=== PATIENT | female | born 1955 | race Caucasian/White ===

== ENCOUNTER 2018-11-24 03:48 | Inpatient (IN) ==
[2018-11-24] MEDS ORDERED: ZOFRAN ONE ×2 (04:03)
[2018-11-24] MEDS ORDERED: MORPHINE ONE ×2 (04:03)
[2018-11-24] MEDS ORDERED: NS 1,000 ML ONE ×3 (04:03→06:25)
[2018-11-24] MEDS ORDERED: DILAUDID ONE ×4 (04:30→08:38)
[2018-11-24] MEDS ORDERED: LOPRESSOR ONE (06:43)
[2018-11-24] MEDS ORDERED: ATIVAN ONE (06:44)
[2018-11-24 07:23] LABS: AGAP 16; ALB/GLOB RATIO 1.6; ALBUMIN 3.9 g/dL (3.5-5.0); ALKALINE PHOSPHATASE 104 U/L (32-104); BUN 13 mg/dL (8-22); CALCIUM 7.3 mg/dL (8.8-10.2); CHLORIDE 95 mmol/L (98-107); COSMO 273; CREATININE 0.5 mg/dL (0.5-0.9); GLUCOSE 179 mg/dL (70-104); GOT 20 U/L (10-30); GPT 26 U/L (10-36); LIPASE 15 U/L (13-60); POTASSIUM 3.6 mmol/L (3.5-5.1); SODIUM 134 mmol/L (136-145); TCO2 23 mmol/L (25-35); TOTAL BILIRUBIN 0.86 mg/dL (0.20-1.00); TOTAL PROTEIN 6.4 g/dL (6.3-8.3)
[2018-11-24 08:12] LABS: BASO# 0.05 X1000 (0.0-0.2); BASO% 0.6 % (0.0-0.8); HEMATOCRIT 48.2 % (37.0-47.0); HEMOGLOBIN 15.8 g/dL (12.0-16.0); IMM GRAN# 0.09 X1000 (0.0-0.04); IMM GRAN% 1.2 % (0.0-0.5); LYMPH# 1.33 X1000 (1.2-3.4); LYMPH% 17.2 % (20.5-51.1); MCHC 32.8 g/dL (33-37); MCV 88.4 FL (81-99); MONO# 0.43 X1000 (0.11-0.59); MONO% 5.6 % (1.7-9.3); NEUT# 5.82 X1000 (1.4-6.5); NEUT% 75.4 % (42.2-75.2); PLT 323 X1000 (130-400); RBC 5.45 XMIL (4.2-5.4); WBC 7.72 X1000 (4.8-10.8)
[2018-11-24] MEDS ORDERED: DILAUDID IV ONE (08:30)
--- NOTE | 2018-11-24 09:12 | Diag Imaging Result Doc PS360 ---
EXAM: CT ABD/PELVIS W/IV CONT ONLY INDICATION: ABD PAIN AND DISTENSION TECHNIQUE: This exam was performed using automated exposure control, adjustment of mA or kV according to patient size, and/or use of iterative reconstruction technique. COMPARISON: None. FINDINGS: There are extensive emphysematous changes at the lung bases. There is minimal subsegmental atelectasis and/or scarring at the lung bases. There are numerous indeterminate low dense lesions seen throughout the hepatic parenchyma. Many are too small to characterize. It is possible that they represent multiple small complex cysts containing proteinaceous debris. There is mild intrahepatic and extrahepatic biliary dilatation. No radiopaque ductal stones can be identified. The gallbladder is distended and is grossly unremarkable, otherwise. The spleen, pancreas, and adrenal glands are unremarkable. There is small volume ascites tracking around the liver and spleen and layering in the pelvis. The right renal collecting system is mild to moderately dilated. This is of unknown acuity but is probably due to the dilated colon discussed below exhibiting mass effect on the distal ureter. The kidneys are unremarkable, otherwise. The urinary bladder is distended and is unremarkable, otherwise. There has been a prior hysterectomy. There is a large volume of stool seen throughout the colon and in the rectum suggesting severe constipation. The colon is distended with stool. There is feculent material in multiple loops of small bowel, which suggests slowed bowel transit. Loops of small bowel are mildly dilated that is likely related to the constipation. No focal bowel obstruction is identified. No free abdominal gas is identified. There is a small hiatal hernia and the distal esophagus is fluid-filled suggesting reflux. There are several vague lytic bone lesions in the spine. There are couple of lytic pelvic lesions, for instance, at the inferior pubic ramus on the right. These are suspicious for metastatic disease from an occult neoplasm or multiple myeloma. IMPRESSION: 1.Severe constipation. 2.Mild to moderate dilated right renal pelvis, likely due to mass effect from the dilated colon. 3.Multiple nonspecific low dense lesions throughout the liver. Although it is possible they represent protein filled cysts, they are certainly suspicious for neoplasm. 4.Small volume ascites. 5.Vague skeletal lytic lesions suspicious for metastatic disease or myeloma. 6.Pulmonary emphysema. Electronically signed by Dakota Abraham 11/24/2018 9:10 AM
--- NOTE | 2018-11-24 09:16 | EKG Report ---
Test Performed on : 11/24/2018 06:19:02 AM Test Reason : ED. NO EKG ORDER FOR MUSE Blood Pressure : / mmHG Vent. Rate : 153 BPM Atrial Rate : 153 BPM P-R Int : 120 ms QRS Dur : 072 ms QT Int : 322 ms P-R-T Axes : -29 061 063 degrees QTc Int : 514 ms Sinus tachycardia. Otherwise normal ECG No previous ECGs available Unconfirmed Result
[2018-11-24] MEDS ORDERED: SODIUM CHLORIDE 0.9% INJ ONE (09:32)
[2018-11-24] MEDS ORDERED: PROTONIX IV ONE (09:32)
[2018-11-24] MEDS ORDERED: DULCOLAX PR SCH (09:45)
[2018-11-24] MEDS ORDERED: NS 1,000 ML IV ONE (09:48)
[2018-11-24] MEDS ORDERED: NS 1,000 ML IV SCH (10:00)
[2018-11-24] MEDS ORDERED: LIDODERM TOP SCH (10:15)
[2018-11-24] MEDS ORDERED: ZOFRAN IV PRN (10:46)
[2018-11-24 10:52] LABS: HEMOGLOBIN 11.1 g/dL (12.0-16.0)
[2018-11-24] MEDS ORDERED: LACTULOSE PO SCH (11:00)
[2018-11-24] MEDS ORDERED: PROTONIX 80 MG in NS 80 ML IV ONE (11:00)
[2018-11-24 11:05] LABS: INR 1.59; PROTIME 20.2 Seconds (11.0-16.0)
--- NOTE | 2018-11-24 11:20 | HISTORY AND PHYSICAL ---
ADDENDUM: I have discussed the components of history, physical, labs, assessment and plan verbally. I am awaiting the official note. I went to the bedside and evaluated the patient. In brief, Ms. Pascal is a 63-year-old, lady with metastatic cancer of unclear primary who is on chemotherapy. Comes in with complaints off coffee-grounds emesis, severe nausea, vomiting, abdominal pain of about 8 hours' duration which started close to midnight today. On arrival, the patient's vitals were unremarkable. However, on my review, I was not able to obtain proper blood pressure. The patient was in excruciating abdominal pain and was tossing in the bed. She also appears confused and has acute encephalopathy. The vitals which were reported in the system suggest temperature of 99.1 degrees, pulse 54, respiratory rate 26, blood pressure 138/103. On my examination, she appeared to be tachycardic with a heart rate of 110 per minute. Her oral cavity was dry. There was some staining of the lips and oral mucosa, appeared coffee- grounds. Her air entry was bilaterally equal with shallow breaths, without wheeze, rhonchi, crackles. She was tachycardic. The examination was limited as she was not able to lie down still in the bed. On abdomen examination, she was distended. There was voluntary guarding. I could not appreciate too much rigidity. However, again, the examination was limited because of her constantly tossing in the bed. She had hypoactive bowel sounds. In fact, I could not appreciate any bowel sounds and she had tympany to percussion. On rectal examination, there were about four impacted stony stool balls that I was able to disimpact. She appeared pale. Labs suggestive of no leukocytosis, normal hemoglobin and platelet count, hyponatremia, hypochloremia, normal kidney function. IMAGING: The abdominal and pelvis CT was suggestive of severe constipation, mild to moderate dilated renal pelvis due to mass effect from dilated colon, multiple lesions throughout the liver and bone, suspicious of new malignancy, and pulmonary emphysema. ASSESSMENT AND PLAN: 1. Large intestine obstruction, likely because of rectal impaction, status post manual disimpaction. However, she still appears to have a lot of stool in the rectum which I could not reach out to. I will start her on a bisacodyl suppository. We will give her on as needed medication for nausea vomiting. I will consult gastroenterology for her coffee-grounds emesis. I have ordered Protonix bolus and IV BID dosing. NS bolus has also been ordered. I would also consult surgery as her colonic dilatation was almost pressing on the renal pelvis, causing hydronephrosis, to have them on board just in case her clinical situation deteriorates. On CT scan report, there was no free air. I will also start on intravenous Protonix. 2. Disposition. The patient will be transferred to the [facility] as I was not able to obtain blood pressure consistently. However, on manual reading, she did have a systolic blood pressure of 100 and her pulse was palpable later on. Plan of care was discussed with the patient's mother and father, who are her surrogate decision-makers. All of their questions have been answered satisfactorily. cc: Iftikhar Montez MD MTDD
--- NOTE | 2018-11-24 11:43 | HISTORY AND PHYSICAL ---
PRIMARY CARE PHYSICIAN: Verna Walker MD. CHIEF COMPLAINT: Abdominal pain. HISTORY OF PRESENT ILLNESS: Mrs. Schroeder is a 63-year-old female with a history of metastatic malignancy of unknown origin followed by Dr. Jeri Owen. She also has a history of chronic pain on narcotic therapy. She has been in her usual state of health until yesterday, she had acute onset of abdominal pain and distention followed by multiple episodes of nausea and vomiting, which progressed into the night and into this morning ultimately requiring her to come to the ER for evaluation. In the ER, she had a CT of the abdomen and pelvis done, which showed numerous indeterminate low dense lesions throughout the hepatic parenchyma, small volume ascites, right renal collecting system with moderate dilatation likely secondary to mass effect of remarkable constipation, and multiple vague skeletal lytic lesions suspicious for metastatic disease along with pulmonary emphysema. Her laboratory data is largely unremarkable, however, she is in exquisite amount of pain requiring multiple doses of narcotic therapy for relief. On physical exam, her abdomen is distended and there appears to be a hernia superior to the umbilicus. She is in quite a bit of distress and encephalopathic as well. Also, there are reports that she has been vomiting coffee-ground emesis, indeed she has dark red fluid around her lips and in her mouth and her oral mucosa is very dry. Given all of the above, she will need inpatient admission for further treatment and evaluation. PAST MEDICAL HISTORY: 1. Metastatic disease of unknown origin followed by Dr. Jeri Owen with active chemotherapy, last dose last Wednesday. 2. Apparent COPD. 3. Chronic pain on narcotic therapy. PAST SURGICAL HISTORY: Hysterectomy. SOCIAL HISTORY: She is . Her mother and father are at the bedside. She quit smoking multiple years ago. No current tobacco, alcohol, or drug use. FAMILY HISTORY: Noncontributory. REVIEW OF SYSTEMS: Difficult to obtain but a limited 10-point review of systems was obtained and found to be negative with the exception of the HPI. ALLERGIES: No known drug allergies. HOME MEDICATIONS: Yet to be compiled. She does take morphine extended release for back pain. List is currently updated by the nursing staff. PHYSICAL EXAMINATION: VITAL SIGNS: Blood pressure is 138/103, respiratory rate is 26, O2 saturation 96% on nasal cannula, temperature is 99.1. GENERAL: This is a chronically ill borderline cachetic-appearing 63-year-old female lying in the hospital bed in [id number] distress. NEUROLOGIC: She is able to state that she is in [place] but cannot give the correct year or the month. She does follow commands without any focal deficits. HEENT: Head is atraumatic and normocephalic. Her pupils are equal, round, and reactive to light. Oral mucosa is dry with traces of coffee-ground emesis in her mouth and around her lips. NECK: Trachea is midline. Neck is supple. There is no JVD. CHEST: Diminished at the bases but clear to auscultation. CARDIOVASCULAR: Regular rate and rhythm. S1 and S2 is noted. No murmurs. GASTROINTESTINAL: Distended but soft. There is a periumbilical hernia. Bowel sounds are hypoactive. EXTREMITIES: Pulses are diminished but palpable. DIAGNOSTIC DATA: Abdomen and pelvis CT: Please see HPI. WBC 7.73, hemoglobin 15.8, hematocrit 48.2, platelet count 323. Sodium 134, potassium 3.6, chloride 95, CO2 23, anion gap 16, BUN 13, creatinine 0.5, glucose 179, calcium 7.3, LFTs normal, albumin 3.9, lipase 15. ASSESSMENT AND PLAN: 1. Acute abdominal pain with distention: It would appear, at least at this time that the majority of her symptoms are secondary to severe fecal impaction, however given her known history of metastatic disease with liver involvement, stomach involvement, and possibly others, the possibility of acute intraabdominal process cannot be ruled out. We have consulted Surgery and will do Dulcolax suppositories. We have also started her on fluids and Protonix. We have also consulted GI for further assistance. 2. Gastrointestinal bleed. We have ordered a Protonix bolus and GI consultation, she does have apparent malignancy in her stomach although that is report given by the family, there is no documentation of such in her chart. Will trend her hemoglobin and hematocrit every 6 hours. 3. Metastatic malignancy: Unclear as to the primary source of malignancy. Will consult Dr. Owen and continue pain control. 4. Further recommendations to follow. Dictated by JESUS Carolina for Iftikhar Montez MD cc: JESUS Carolina MD I agree with most components of history, physical, assessment and plan. A separate addendum has been dictated. MTDD
--- NOTE | 2018-11-24 14:04 | GASTROENTEROLOGY CONSULTATION ---
DATE: 11/24/2018 PRIMARY CARE PHYSICIAN: Verna Walker. REASON FOR CONSULTATION: Abdominal pain. HISTORY OF PRESENT ILLNESS: Ms. Pascal 63 -year-old female who has a history of metastatic malignancy of unknown origin, being followed by Dr. Jeri Owen. She has been on chronic narcotics for chronic pain. The patient admitted on 11/24/2018 for worsening abdominal pain and distention. She had imaging done in the form of CT scan which showed evidence of: #1 severe constipation,#2 mild to moderate dilated right renal pelvis likely due to mass effect from the dilated colon, #3 multiple nonspecific low dense lesions throughout the liver. Although is possible they represent protein filled cyst, they are certainly suspicious for neoplasm. 4. small volume ascites; 5. Vague skeletal lytic lesions suspicious for metastatic disease or myeloma. 6. Pulmonary emphysema. 7. Feculent material in multiple loops of the small bowel because of constipation and large bowel obstruction. According to the patient's mother, father and brother, patient has been diagnosed with malignancy at [facility] a few months ago, and she has seen by Dr. Jeri Owen and getting active chemotherapy. The last chemotherapy was last Wednesday. According to the patient's mother she has been in more pain for the last few days. In the abdomen and that prompted them to bring her to the ER. She also has a history of some intermittent nausea and vomiting. There was also a question of coffee-grounds emesis. The history was obtained from the patient's family and the nursing report and the primary care team. PAST MEDICAL HISTORY: 1. Metastatic disease of unknown origin. Followed by Dr. Jeri Owen. 2. Chronic obstructive pulmonary disease. 3. Chronic narcotic use for chronic pain. PAST SURGICAL HISTORY: Hysterectomy. FAMILY HISTORY: Noncontributory. SOCIAL HISTORY: She is . Her mother father and brother are present at bedside. She quit smoking multiple years ago. No current alcohol, tobacco, or illicit drug abuse. REVIEW OF SYSTEMS: Could not be obtained as the patient I could not answer any of my questions. She is in pain and in mild distress. ALLERGIES: No known drug allergies. MEDICATIONS IN HOSPITAL: IV normal saline 1000 mL/hour, Protonix 80 mg IV once. Dulcolax 10 mg per rectum every 8 hours, lactulose 30 mL p.o. b.i.d., lidocaine 5% patch topical daily. Normal saline at 125 mL/hour maintenance, Zofran 4 mg IV every 4 hours as needed, Protonix 40 mg IV b.i.d., Dilaudid 2 mg IV once. PHYSICAL EXAMINATION: Temperature 99.1 degrees, pulse rate of 54, respiratory 26 blood pressure 130/103 saturating 92%. General: Thinly built, chronically ill appearing. Lying in bed, in mild to moderate distress. HEENT: Positive pallor, no icterus. Neck: Supple. Abdomen: Distended. There is a periumbilical hernia. No guarding or rebound. Bowel sounds are hypoactive. Extremities: No cyanosis, clubbing. Neuro: She is able to answer only a few of my questions. She was able to tell me that her last bowel movement last Wednesday about 10 days ago. LABS: 1. Hemoglobin and hematocrit 11.1 and 36, white count of 7.7, platelet count of 323,000 MCV 88.4, INR 1.09, PTT of 20.2, sodium 135 potassium 3.6, chloride 95, bicarb 23, anion gap 16, BUN of 13, creatinine 0.5, glucose of 139, calcium 7.3, phosphorus 3.0, total bilirubin is 0.86, AST 20, ALT 26, alkaline phosphatase 104, total protein 6.4, albumin of 3.9, lipase of 15. Lactate of 9.6, TSH of 6.51. 2. CT scan of the abdomen and pelvis as described in HPI. IMPRESSION/PLAN: 1. Abdominal pain and abdominal distention. 2. Severe constipation. 3. Multiple lesions in the liver, questionable neoplasm versus cyst. 4. Skeletal lytic lesions suspicious for metastatic disease or myeloma. 5. Pulmonary emphysema. 6. Feculent material in multiple loops of the small bowel because of constipation and large bowel obstruction. 7. Lactic acidosis. RECOMMENDATIONS: 1. We will insert NG tube to help decompress. She will continue on IV fluids. She will continue IV proton pump inhibitors. We will consult general surgery as patient has lactic acidosis. 2. We will continue to watch her labs closely and she will need serial abdominal exams. 3. Based on her clinical course we will decide about further intervention. I had discussed the above plan of care with the patient's family and the nursing staff in the ER and all questions were answered. Please call us with any further questions. cc: MD Iftikhar Wolf MD Heather Shah, MD [facility]
--- NOTE | 2018-11-24 14:46 | DISCHARGE SUMMARY ---
ADMISSION DATE: 11/24/2018 DISCHARGE DATE: 11/24/2018 TIME OF : 11:45 a.m. 11/24/2018 CAUSE OF : Upper gastrointestinal bleed. CONTRIBUTING FACTOR: Metastatic cancer of unclear primary. DISCHARGE DIAGNOSES: 1. Upper gastrointestinal bleed. 2. Rectal fecal impaction. 3. Colonic obstruct. 4. Right-sided hydronephrosis, likely because of colonic dilatation. 5. History of metastatic cancers on chemotherapy. HOSPITAL COURSE SUMMARY: Ms. Pascal is a 63-year-old lady who came in with complaints of intractable nausea and vomiting with coffee-ground emesis. On arrival, she was hemodynamically stable. However, at the time of my evaluation, she appeared to be hypotensive. However, I was able to obtain manual blood pressure with systolic blood pressure of 110. She was tachycardic with heart rate of 110 per minute. She was started on intravenous fluids after rectal fecal disimpaction. 80 mg of IV pantoprazole was ordered and then she was started on intravenous Protonix 40 mg IV every 12 hours. Gastroenterology was consulted for upper gastrointestinal bleed and colonic obstruction and surgery was also consulted. I was informed that the patient before placement could be transferred from the emergency room to [facility]. While putting in an NG tube, she was found to be not really responding well. On the monitor she was noticed to have bradycardia where her heart rate had started dropping and she had lost pulse. CPR was started. However, she had a massive upper GI bleed and the NG tube suction had suggested about 200 mL of gene blood. The family was at bedside. Considering patient's prior wishes and history of metastatic cancer, they had decided that they would not want cardiac resuscitation, so it was immediately stopped. I went to the bedside, evaluated the patient. She did not have any carotid pulses. She was not responding. On cardiac monitoring she did not have any cardiac activity. She did not have any spontaneous breathing. The patient was pronounced. I again went to the bedside I want and talked with the patient's family members including mother, father and updated them about the likely course of events. I updated them that she probably had a massive upper gastrointestinal bleed because of her history of cancer which was also noticed on NG tube suction, which had probably led to sudden hypotension and . I also mentioned to them about decreased hemoglobin on repeat blood test. I also offered them empathy and I assured them that if they had any questions, I would be around to help them. Time Spent: Less than 30 minutes spent in preparing discharge summary of this patient. cc: Iftikhar Montez MD
[2018-11-24] MEDS ORDERED: SODIUM CHLORIDE 0.9% INJ SCH (18:00)
[2018-11-24] MEDS ORDERED: PROTONIX IV SCH (18:00)
== END 2018-11-24 11:50 | disposition expired | DRG 389 ==
LOC: ED 03:48 → 4N 08:13 → EDIPHOLD 09:43
PROVIDERS: ADMIT Internal Medicine; ATTEND Internal Medicine
CPT/HCPCS: 51702; 74177; 80053; 83605; 83690; 84100; 84443; 84484; 85014; 85018; 85025; 85610; 86850; 86900; 86901; 93005; 96361; 96374; 96375; 96376; 99285; 99291; A9270; C9113; J1170; J2060; J2270; J2405; J7030; S0164